=== PATIENT | female | born 2000 | race Asian ===

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

== ENCOUNTER 2020-10-03 14:16 | Emergency (ER) | payer OTHER ==
[~2020-10-03] VITALS: Ht 160 cm; Wt 60.3 kg
[2020-10-03 14:33] VITALS: BP 114/72
--- NOTE | 2020-10-03 15:14 | NUR ---
Patient/Caregiver given discharge instructions and they have confirmed that they understand the instructions. Patient ambulatory with steady gait.
== END 2020-10-03 15:19 | disposition home or self-care (01) ==
LOC: ED 14:46
DX: U07.1 COVID-19 (principal); J06.9 Acute upper respiratory infection, unspecified
CPT/HCPCS: 99281